=== PATIENT | male | born 1985 | race Native Hawaiian/Other Pacific Islander ===

== ENCOUNTER 2017-08-23 15:24 | Emergency (ER) | payer SELFPAY ==
[2017-08-23 15:46] VITALS: PULSE 78; RESP 18; TEMP 98; O2SAT 98
[2017-08-23 16:17] LABS: SQUAMOUS EPITHIAL < 1 /hpf (0-5); URINE BILIRUBIN NEGATIVE (NEGATIVE); URINE BLOOD NEGATIVE (NEGATIVE); URINE CLARITY Hazy (Clear); URINE COLOR Yellow (YELLOW); URINE GLUCOSE (UA) NORMAL (Normal); URINE LEUKOCYTE ESTERASE NEG Leu/uL (Negative); URINE PROTEIN NEGATIVE (NEGATIVE); URINE UROBILINOGEN NORMAL mg/dL (0.2-1.0)
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
[2017-08-23 16:51] LABS: BARBITURATES, UR NEGATIVE (NEGATIVE); BENZODIAZEPINES, UR NEGATIVE (NEGATIVE); OPIATES, UR NEGATIVE (NEGATIVE); PHENCYCLIDINE, UR NEGATIVE (NEGATIVE)
[2017-08-23 18:04] VITALS: BP 106/73
== END 2017-08-23 18:04 | disposition home or self-care (01) ==
LOC: C.ER 15:24
DX: F12.10 Cannabis abuse, uncomplicated (principal)
CPT/HCPCS: 81001; 99284; G0480

== ENCOUNTER 2018-08-21 01:32 | Emergency (ER) | payer SELFPAY ==
--- NOTE | 2018-08-21 01:51 | C.PDOC ---
History Of Present Illness 33 year old male presents to the ED for evaluation of right shoulder dislocation. Patient reports multiple prior right shoulder dislocations before. Patient report onset while lifting shoulder and it popped out. Patient c/o pain to the area, states he has been NPO since 16:00. Patient denies fever, chills, weakness, numbness, direct injury, trauma. Time Seen by Provider: 08/21/18 01:39 Chief Complaint (Nursing): Upper Extremity Problem/Injury History Per: Patient History/Exam Limitations: no limitations Onset/Duration Of Symptoms: Sudden Onset Current Symptoms Are (Timing): Still Present Quality: "Pain" Severity: Moderate Recent travel outside of the [place]: No Additional History Per: Patient Past Medical History Reviewed: Historical Data, Nursing Documentation, Vital Signs Vital Signs: Last Vital Signs Temp 98.2 F 08/21/18 01:38 Pulse 63 08/21/18 01:38 Resp 18 08/21/18 01:38 BP 118/80 08/21/18 01:38 Pulse Ox 99 08/21/18 01:38 Primary Care Provider: FAMILY PROVIDER,NO - Medical History PMH: No Chronic Diseases Denies: Chronic Kidney Disease Surgical History: No Surg Hx Family History: States: Unknown Family Hx - Social History Hx Alcohol Use: No Hx Substance Use: No - Immunization History Hx Tetanus Toxoid Vaccination: No Hx Influenza Vaccination: Yes Hx Pneumococcal Vaccination: No Review Of Systems Constitutional: Negative for: Fever, Chills Cardiovascular: Negative for: Chest Pain Respiratory: Negative for: Shortness of Breath Gastrointestinal: Negative for: Nausea, Vomiting, Abdominal Pain Musculoskeletal: Positive for: Shoulder Pain. Negative for: Arm Pain, Hand Pain Skin: Negative for: Rash Neurological: Negative for: Weakness, Numbness, Headache, Dizziness Physical Exam - Physical Exam Appears: Non-toxic, In Acute Distress Skin: Normal Color, Warm, Dry Head: Atraumatic, Normacephalic Eye(s): bilateral: Normal Inspection Neck: Normal ROM, Supple Chest: Symmetrical Cardiovascular: Rhythm Regular Respiratory: Normal Breath Sounds, No Rales, No Rhonchi, No Wheezing Extremity: No Normal ROM (right shoulder due to pain), Tenderness (right shoulder), Capillary Refill (< 2 seconds), Deformity (right shoulder), No Swelling Pulses: Left Radial: Normal, Right Radial: Normal Neurological/Psych: Oriented x3, Normal Speech, Normal Cognition Gait: Steady ED Course And Treatment O2 Sat by Pulse Oximetry: 99 (ON RA) Pulse Ox Interpretation: Normal - Other Rad R SHOULDER X-Ray: Interpreted by Me (NEG) Medical Decision Making Medical Decision Making: Plan: * IV fluids * Toradol 30 mg IVP * Right shoulder X-Ray Disposition Counseled Patient/Family Regarding: Studies Performed, Diagnosis, Need For Followup - Disposition Referrals: [facility] [Outside] [facility] [Outside] Disposition: HOME/ ROUTINE Disposition Time: 03:03 Condition: IMPROVED Prescriptions: Ibuprofen [Motrin] 600 mg PO Q6 #30 tab Instructions: Shoulder Dislocation (DC), Moderate Sedation in Adults (DC) Forms: [employer] ([place]an) - Clinical Impression Clinical Impression: Shoulder dislocation, recurrent - Scribe Statement The provider has reviewed the documentation as recorded by the Scribe Isai Moore All medical record entries made by the Scribe were at my direction and personally dictated by me. I have reviewed the chart and agree that the record accurately reflects my personal performance of the history, physical exam, medical decision making, and the department course for this patient. I have also personally directed, reviewed, and agree with the discharge instructions and disposition. Proc Sedation PRE-PROCEDURE - Pre-Anesthesia Chief Complaint: Upper Extremity Problem/Injury Past Medical History: Medications Reviewed, Allergies Reviewed, Record Review Previous Surgies: Reviewed Family History/Social History: Reviewed - Physical Exam/Review of Systems Vital Signs Reviewed: Yes Cardiovascular: Regular Rate and Rhythm, Normal S1, S2. denies: Murmurs Respiratory/Chest: Clear to Auscultation, Good Air Exchange. denies: Respiratory Distress, Accessory Muscle Use Neurological: GCS=15, CN II-XII Intact, Speech Normal Abdomen: Normal Bowel Sounds. denies: Tenderness, Distention, Peritoneal Signs Mental Status: Alert and Oriented X 3 - Pre-Procedure Airway Assessment History of difficult intubation or surgical airway (i.e trach):: No Inability to extend neck:: No Mouth opening less than two finger breadth:: No Diagnosis of sleep apnea:: No Less than three finger breadth to hyoid bone:: No ASA Criteria: 1 - Healthy, normal. 2 - Mild systemic disease (No functional limitations, mildline obesity, DM withot complications, Hypertention). 3 - Severe systemic disease (Some functional limitation, stable angina, morbid obesity, controlled COPD/Asthma/CHF). 4 - Sever systemic disease constant threat to life (Unstable angina, active symptoms of COPD/Asthma, CHF/Hypertension. 5 - Moribund ASA Clarification: ASA I Mallampati (airway): Class I Proc Sedation INTRA-PROCEDURE - Medications Medications Given: Sodium Chloride (Sodium Chloride 0.9%) 500 mls @ 1,000 mls/hr IV .Q30M ONE Stop: 08/21/18 02:21 Discontinued Medications Fentanyl (Fentanyl) 100 mcg IV STAT STA Stop: 08/21/18 01:53 Ketorolac Tromethamine (Toradol) 30 mg IVP STAT STA Stop: 08/21/18 01:54 Midazolam HCl (Versed Inj) 2 mg IV STAT STA Stop: 08/21/18 01:53 Proc Sedation POST-PROCEDURE - Discharge Checklist Written MD order for Discharge: Yes Vital signs assessed and are consistent with pre-procedure reading: Yes Minimal nausea, vomiting, and dizziness: Yes Ambulates to pre-procedural level: Yes Alert and oriented to pre-procedural level: Yes Responsible adult escort present: Yes DISCHARGE INSTRUCTIONS GIVEN:: Yes
[2018-08-21] MEDS ORDERED: Midazolam 2 MG/2 ML VIAL IV STA (01:52)
[2018-08-21] MEDS ORDERED: Sodium Chloride 0.9% 500 ML IV ONE (01:52)
[2018-08-21] MEDS ORDERED: Midazolam 2 MG/2 ML VIAL ONE (02:04)
[2018-08-21] MEDS ORDERED: Propofol 10 mg/ml Inj (20 ML) ONE (02:21)
[2018-08-21] MEDS ORDERED: Propofol 10 mg/ml Inj (20 ML) IV ONE (02:35)
[2018-08-21 02:48] VITALS: RESP 14
[2018-08-21 03:11] VITALS: BP 102/60; PULSE 58; TEMP 98.2; O2SAT 100
--- NOTE | 2018-08-21 09:27 | RAD ---
PROCEDURE: Radiographs of the Right Shoulder, 2 views HISTORY: POST REDUCTION COMPARISON: None available. FINDINGS: BONES: No acute displaced fracture. The distal clavicle and underlying ribs appear intact. JOINTS: No acute dislocation. SOFT TISSUES: Soft tissues appear unremarkable. No evidence of radiopaque foreign body. IMPRESSION: No acute displaced fracture or dislocation evident. If symptoms persist or if there is continued clinical concern, x-ray follow-up in 7-10 days should be considered.
== END 2018-08-21 03:20 | disposition home or self-care (01) ==
LOC: EDBD 01:32 → C.ER 01:32 → MERGE 01:32 → C.ER 03:20
DX: M24.411 Recurrent dislocation, right shoulder (principal)
CPT/HCPCS: 23655; 73030; 94770; 96374; 99285; J1885; J2250; J2704; J3010; J7040